=== PATIENT | male | born 1975 | race Caucasian/White ===

== ENCOUNTER 2017-01-08 04:11 | Emergency (ER) | payer OTHER ==
[~2017-01-08] VITALS: Ht 172.7 cm; Wt 121.9 kg
[~2017-01-08 04:11] MED LIST: LEXAPRO10 MG PO; NOHOMEMEDS; OLANZAPINE7.5 MG PO; PERPHENAZINE16 MG PO; VALERIAN ROOT100 MG PO; WELLBUTRIN SR200 MG PO; ZOLPIDEM TARTRAT5 MG PO; ZYPREXA10 MG PO; ZYPREXA7.5 MG PO
[2017-01-08 06:19] VITALS: BP 147/100
== END 2017-01-08 06:19 | disposition home or self-care (01) ==
LOC: EME 04:11
DX: S61.211A Laceration without foreign body of left index finger without damage to nail, initial encounter (principal); W26.0XXA Contact with knife, initial encounter; Z23 Encounter for immunization
CPT/HCPCS: 99281; 99284; S0020